=== PATIENT | male | born 1960 | race Caucasian/White ===

== ENCOUNTER 2018-01-21 13:38 | Emergency (ER) | payer OTHER ==
[~2018-01-21] VITALS: Ht 182.9 cm; Wt 88.5 kg
[~2018-01-21 13:38] MED LIST: Bactrim Ds Tab1 EACH PO; DOXY100 PO; HYDACE5 PO; Hytrin PO; Keflex500 MG PO; METPRE4DP PO; NAPR500 PO; NEOPOLHCSU LEFTEAR; OTC PROSTATE MED; SAW PALMETTO; TAMS.4ER PO; TERA5 PO; Zithromax250 MG PO
[2018-01-21] MEDS ORDERED: NEOPOLHCSU LEFTEAR (14:03)
[2018-01-24] MEDS ORDERED: NEOPOLHCSU LEFTEAR (16:03)
== END 2018-01-21 14:00 | disposition home or self-care (01) ==
LOC: ER 13:38
DX: H60.92 Unspecified otitis externa, left ear (principal); Z88.0 Allergy status to penicillin; Z79.2 Long term (current) use of antibiotics; Z79.899 Other long term (current) drug therapy
CPT/HCPCS: 99282

== ENCOUNTER 2018-04-28 13:42 | Emergency (ER) | payer OTHER ==
[~2018-04-28] VITALS: Ht 185.4 cm; Wt 90.7 kg
[2018-04-28] MEDS ORDERED: Keflex500 MG PO (15:19)
[2018-04-28] MEDS ORDERED: Norco 5-325 Ta1 EACH PO (15:19)
== END 2018-04-28 15:47 | disposition home or self-care (01) ==
LOC: ER 13:42
DX: S68.121A Partial traumatic metacarpophalangeal amputation of left index finger, initial encounter (principal); S61.311A Laceration without foreign body of left index finger with damage to nail, initial encounter; Z23 Encounter for immunization; Z88.0 Allergy status to penicillin; W31.89XA Contact with other specified machinery, initial encounter; Y92.096 Garden or yard of other non-institutional residence as the place of occurrence of the external cause
CPT/HCPCS: 12001; 73140; 90471; 99282-25

== ENCOUNTER 2018-05-08 15:31 | Emergency (ER) | payer OTHER ==
[~2018-05-08] VITALS: Ht 185.4 cm; Wt 86.2 kg
[~2018-05-08 15:31] MED LIST changes: +Norco 5-325 Ta1 EACH PO
== END 2018-05-08 16:39 | disposition home or self-care (01) ==
LOC: ER 15:31
DX: S68.121D Partial traumatic metacarpophalangeal amputation of left index finger, subsequent encounter (principal); Z88.0 Allergy status to penicillin; Z79.899 Other long term (current) drug therapy
CPT/HCPCS: 29130; 99282

== ENCOUNTER 2019-06-06 13:20 | Emergency (ER) | payer OTHER ==
[~2019-06-06] VITALS: Ht 182.9 cm; Wt 81.7 kg
[2019-06-06] MEDS ORDERED: TERA5 PO (13:36)
== END 2019-06-06 13:41 | disposition home or self-care (01) ==
LOC: ER 13:20
DX: N40.0 Benign prostatic hyperplasia without lower urinary tract symptoms (principal); Z87.891 Personal history of nicotine dependence; Z88.0 Allergy status to penicillin; Z79.899 Other long term (current) drug therapy
CPT/HCPCS: 99281

== ENCOUNTER 2019-09-23 14:28 | Emergency (ER) | payer OTHER ==
[~2019-09-23] VITALS: Ht 182.9 cm; Wt 88.5 kg
[2019-09-23] MEDS ORDERED: TERA5 PO (15:29)
[2019-09-23] MEDS ORDERED: Hytrin1 MG PO (15:49)
== END 2019-09-23 15:50 | disposition home or self-care (01) ==
LOC: ER 14:28
DX: N40.0 Benign prostatic hyperplasia without lower urinary tract symptoms (principal); Z76.0 Encounter for issue of repeat prescription; Z87.891 Personal history of nicotine dependence; Z88.0 Allergy status to penicillin
CPT/HCPCS: 99281

== ENCOUNTER 2020-12-11 15:04 | Emergency (ER) | payer OTHER ==
[~2020-12-11] VITALS: Ht 182.9 cm; Wt 88.5 kg
[~2020-12-11 15:04] MED LIST changes: +Hytrin1 MG PO
[2020-12-11] MEDS ORDERED: Hytrin1 MG PO (15:14)
== END 2020-12-11 15:17 | disposition home or self-care (01) ==
LOC: ER 15:04
DX: Z76.0 Encounter for issue of repeat prescription (principal); Z88.0 Allergy status to penicillin; Z79.899 Other long term (current) drug therapy; Z87.891 Personal history of nicotine dependence
CPT/HCPCS: 99281

== ENCOUNTER 2021-02-13 12:54 | Emergency (ER) | payer OTHER ==
[~2021-02-13] VITALS: Ht 182.9 cm; Wt 90.7 kg
[2021-02-13] MEDS ORDERED: Hytrin1 MG PO (13:00)
== END 2021-02-13 13:00 | disposition home or self-care (01) ==
LOC: ER 12:54
DX: Z76.0 Encounter for issue of repeat prescription (principal); Z88.0 Allergy status to penicillin; Z79.899 Other long term (current) drug therapy
CPT/HCPCS: 99281

== ENCOUNTER 2021-04-13 15:43 | Emergency (ER) | payer OTHER ==
[~2021-04-13] VITALS: Ht 182.9 cm; Wt 88.5 kg
[2021-04-13] MEDS ORDERED: Hytrin1 MG PO (15:52)
== END 2021-04-13 15:54 | disposition home or self-care (01) ==
LOC: ER 15:43
DX: N40.0 Benign prostatic hyperplasia without lower urinary tract symptoms (principal); Z76.0 Encounter for issue of repeat prescription
CPT/HCPCS: 99282

== ENCOUNTER 2021-05-24 12:31 | Emergency (ER) | payer OTHER ==
[~2021-05-24] VITALS: Ht 182.9 cm; Wt 86.2 kg
== END 2021-05-24 12:58 | disposition home or self-care (01) ==
LOC: ER 12:31
DX: N40.0 Benign prostatic hyperplasia without lower urinary tract symptoms (principal); Z76.0 Encounter for issue of repeat prescription
CPT/HCPCS: 99281

== ENCOUNTER 2021-07-21 11:53 | Emergency (ER) | payer OTHER ==
[~2021-07-21] VITALS: Ht 182.9 cm; Wt 90.3 kg
[2021-07-21] MEDS ORDERED: GUAI600T33 PO (16:12)
== END 2021-07-21 16:23 | disposition home or self-care (01) ==
LOC: ER 11:53
DX: R09.81 Nasal congestion (principal); Z88.0 Allergy status to penicillin
CPT/HCPCS: 99283; A9270

== ENCOUNTER → 2021-07-27 | Outpatient (CLI) | payer OTHER ==
[~2021-07-27] MED LIST changes: +GUAI600T33 PO
[2021-07-27 19:07] LABS: Alanine Aminotransfer (ALT/SGP 30 U/L (12-78); Albumin/Globulin Ratio 1.3 (0.8-1.8); Alk Phos 75 U/L (50-136); Anion Gap 8 mmol/L (6-16); Aspartate Aminotrans (AST/SGOT 26 U/L (12-37); Bilirubin, Total 2.5 mg/dL (0.1-1.0); Blood Urea Nitrogen 8 mg/dL (8-24); Bun/Creatinine Ratio 10.3 (12.0-20.0); CO2, Blood 23 mmol/L (21-32); Calcium, Blood 9.2 mg/dL (8.5-10.1); Chloride, Blood 104 mmol/L (98-108); Creatinine, Blood 0.78 mg/dL (0.60-1.20); Globulin, Blood 3.1 g/dL (2.2-4.0); Glomerular Filtration Rate >60 (60-); Glucose, Blood 89 mg/dL (70-99); Potassium, Blood 3.5 mmol/L (3.5-5.5); Sodium, Blood 135 mmol/L (136-145); Total Protein, Blood 7.1 g/dL (6.4-8.2)
== END | disposition home or self-care (01) ==
LOC: LAB SHORT 18:07
PROVIDERS: Nurse Practitioner Family
DX: R33.9 Retention of urine, unspecified (principal)
CPT/HCPCS: 80053

== ENCOUNTER 2021-08-25 11:04 | Emergency (ER) | payer OTHER ==
[~2021-08-25] VITALS: Ht 182.9 cm; Wt 86.2 kg
[2021-08-25] MEDS ORDERED: ONDA4ODT MM ×2 (11:49→11:59)
== END 2021-08-25 12:10 | disposition home or self-care (01) ==
LOC: ER 11:04
DX: R11.2 Nausea with vomiting, unspecified (principal); Z87.891 Personal history of nicotine dependence; Z88.0 Allergy status to penicillin
CPT/HCPCS: 99283

== ENCOUNTER → 2022-06-28 | Outpatient (CLI) | payer OTHER ==
[~2022-06-28] MED LIST changes: +ONDA4ODT MM
[2022-06-28 15:06] LABS: BASOPHILS ABSOLUTE AUTO 0.05 K/mm3 (0.00-0.23); BASOPHILS PERCENT AUTO 1 % (0-2); EOSINOPHILS ABSOLUTE AUTO 0.05 K/mm3 (0.00-0.68); EOSINOPHILS PERCENT AUTO 1 % (0-6); Hematocrit 48.2 % (37.0-53.0); Hemoglobin 16.4 g/dL (13.5-17.5); IMMATURE GRAN ABSOLUTE AUTO 0.02 K/mm3 (0.00-0.10); IMMATURE GRAN PERCENT AUTO 0 % (0-1); LYMPHOCYTES ABSOLUTE AUTO 1.28 K/mm3 (0.84-5.20); LYMPHOCYTES PERCENT AUTO 20 % (21-46); MONOCYTES ABSOLUTE AUTO 0.58 K/mm3 (0.16-1.47); MONOCYTES PERCENT AUTO 9 % (4-13); Mean Corpuscular HGB 29.7 pg (26.0-34.0); Mean Corpuscular Volume 87 fL (80-100); Mean Platelet Volume 10.4 fL (9.1-12.4); NEUTROPHILS ABSOLUTE AUTO 4.56 K/mm3 (1.96-9.15); NEUTROPHILS PERCENT AUTO 70 % (41-73); Platelet Count 199 K/mm3 (150-400); RDW Coefficient Variation 12.3 % (11.7-14.2); RDW Standard Deviation 39.6 fL (35.1-46.3); Red Blood Cell Count 5.53 M/mm3 (4.30-5.90); White Blood Cell Count 6.54 K/mm3 (4.00-11.30)
[2022-06-28 15:18] LABS: Alanine Aminotransfer (ALT/SGP 37 U/L (12-78); Albumin, Blood 3.8 g/dL (3.4-5.0); Albumin/Globulin Ratio 1.2 (0.8-1.8); Alk Phos 77 U/L (50-136); Anion Gap 6 mmol/L (6-16); Aspartate Aminotrans (AST/SGOT 16 U/L (12-37); Bilirubin, Total 1.4 mg/dL (0.1-1.0); Blood Urea Nitrogen 15 mg/dL (8-24); CHOL/HDL RATIO 3.4; CO2, Blood 27 mmol/L (21-32); Calcium, Blood 9.2 mg/dL (8.5-10.1); Chloride, Blood 107 mmol/L (98-108); Cholesterol 175 mg/dL (50-200); Creatinine, Blood 0.79 mg/dL (0.60-1.20); Globulin, Blood 3.1 g/dL (2.2-4.0); Glomerular Filtration Rate 102 (60-); Glucose, Blood 98 mg/dL (70-99); HDL Cholesterol 52 mg/dL (>39); LDL/HDL RATIO 2.1; Low Density Lipoprotein Chol 110 mg/dL (0-110); Sodium, Blood 140 mmol/L (136-145); Total Protein, Blood 6.9 g/dL (6.4-8.2); Triglycerides 67 mg/dL (30-160); Very Low Density Lipoprot Chol 13 mg/dL (6-32)
== END | disposition home or self-care (01) ==
LOC: LAB SHORT 13:59 → LAB 13:59
PROVIDERS: Nurse Practitioner Family
DX: K21.9 Gastro-esophageal reflux disease without esophagitis (principal)
CPT/HCPCS: 80053; 80061; 85025

== ENCOUNTER 2023-09-19 15:28 | Emergency (ER) | payer OTHER ==
[~2023-09-19] VITALS: Ht 182.9 cm; Wt 93.0 kg
[2023-09-19 15:59] VITALS: BP 139/97
[2023-09-19] MEDS ORDERED: Cleocin HCl150 MG PO (18:08)
== END 2023-09-19 18:23 | disposition home or self-care (01) ==
LOC: ER 15:28
DX: K04.7 Periapical abscess without sinus (principal); N40.0 Benign prostatic hyperplasia without lower urinary tract symptoms; Z79.899 Other long term (current) drug therapy; Z88.0 Allergy status to penicillin; Z87.891 Personal history of nicotine dependence
CPT/HCPCS: 41800; 96372-59; 99283-25; A9270; J1885

== ENCOUNTER 2025-02-13 16:32 | Emergency (ER) | payer OTHER ==
[~2025-02-13] VITALS: Ht 185.4 cm; Wt 86.2 kg
[~2025-02-13 16:32] MED LIST changes: +Cleocin HCl150 MG PO; +OMEP20ER
[2025-02-13 16:45] VITALS: BP 120/90
[2025-02-13 18:18] LABS: BASOPHILS ABSOLUTE AUTO 0.03 K/mm3 (0.00-0.23); BASOPHILS PERCENT AUTO 0 % (0-2); EOSINOPHILS ABSOLUTE AUTO 0.03 K/mm3 (0.00-0.68); EOSINOPHILS PERCENT AUTO 0 % (0-6); Hematocrit 43.9 % (37.0-53.0); IMMATURE GRAN ABSOLUTE AUTO 0.02 K/mm3 (0.00-0.10); IMMATURE GRAN PERCENT AUTO 0 % (0-1); LYMPHOCYTES ABSOLUTE AUTO 1.03 K/mm3 (0.84-5.20); LYMPHOCYTES PERCENT AUTO 15 % (21-46); MONOCYTES ABSOLUTE AUTO 0.49 K/mm3 (0.16-1.47); MONOCYTES PERCENT AUTO 7 % (4-13); Mean Corpuscular HGB 30.2 pg (26.0-34.0); Mean Corpuscular HGB Conc 34.2 g/dL (31.5-36.5); Mean Corpuscular Volume 89 fL (80-100); Mean Platelet Volume 10.2 fL (9.1-12.4); NEUTROPHILS ABSOLUTE AUTO 5.37 K/mm3 (1.96-9.15); NEUTROPHILS PERCENT AUTO 77 % (41-73); Platelet Count 179 K/mm3 (150-400); RDW Coefficient Variation 12.9 % (11.7-14.2); RDW Standard Deviation 42.4 fL (35.1-46.3); Red Blood Cell Count 4.96 M/mm3 (4.30-5.90); White Blood Cell Count 6.97 K/mm3 (4.00-11.30)
[2025-02-13 18:45] LABS: Albumin, Blood 3.9 g/dL (3.4-5.0); Albumin/Globulin Ratio 1.6 (0.8-1.8); Bun/Creatinine Ratio 12.2 (12.0-20.0); Calcium, Blood 8.9 mg/dL (8.5-10.1); Creatinine, Blood 0.9 mg/dL (0.60-1.20); Globulin, Blood 2.5 g/dL (2.2-4.0); Potassium, Blood 3.8 mmol/L (3.5-5.5); Total Protein, Blood 6.4 g/dL (6.4-8.2)
[2025-02-13] MEDS ORDERED: Ketorolac Tromethamine 30mg Vial IV ONE (19:45)
[2025-02-13] MEDS ORDERED: IBUP600 PO (19:49)
== END 2025-02-13 20:24 | disposition home or self-care (01) ==
LOC: ER 16:32
PROVIDERS: Emergency Medicine
DX: K40.90 Unilateral inguinal hernia, without obstruction or gangrene, not specified as recurrent (principal); M16.0 Bilateral primary osteoarthritis of hip; X50.9XXA Other and unspecified overexertion or strenuous movements or postures, initial encounter; Z88.0 Allergy status to penicillin; Z79.899 Other long term (current) drug therapy; Z87.891 Personal history of nicotine dependence
CPT/HCPCS: 73502; 74177; 76857; 80053; 83690; 85025; 99284-25; J1885; Q9967

== ENCOUNTER → 2025-07-14 | Outpatient (CLI) | payer OTHER ==
[~2025-07-14] MED LIST changes: +IBUP600 PO
[2025-07-14 19:31] LABS: Anion Gap 9.0 mmol/L (3-11); Blood Urea Nitrogen 8.0 mg/dL (8-24); CO2, Blood 28.0 mmol/L (21-32); Calcium, Blood 9.6 mg/dL (8.5-10.1); Chloride, Blood 105.0 mmol/L (98-108); Creatinine, Blood 0.88 mg/dL (0.60-1.20); Glucose, Blood 100.0 mg/dL (70-99); Potassium, Blood 4.1 mmol/L (3.5-5.5); Sodium, Blood 138.0 mmol/L (136-145)
== END ==
LOC: LAB SHORT 16:58 → LAB 16:58
PROVIDERS: Nurse Practitioner Family
DX: I10 Essential (primary) hypertension (principal)
CPT/HCPCS: 80048